=== PATIENT | female | born 1970 | race Caucasian/White ===

== ENCOUNTER → 2016-06-12 | Outpatient (REF) ==
[~2016-06-12] MED LIST: MIRENA52 MG IY; NORCO 325 MG-51 TAB PO; NORCO 325 MG-7.1 TAB PO; ROXICODONE 55 MG/TAB PO
== END ==
LOC: WSOH 09:24
DX: Z01.89 Encounter for other specified special examinations (principal)

== ENCOUNTER → 2016-11-13 | Outpatient (REF) | LOC: WSOH 16:15 | DX: Z02.89 Encounter for other administrative examinations (principal) ==

== ENCOUNTER 2017-04-23 07:39 | Outpatient (CLI) | payer BC ==
[~2017-04-23] VITALS: Ht 162.6 cm; Wt 70.0 kg
[2017-04-23 08:10] VITALS: BP 112/74; PULSE 73; TEMP 97.9
[2017-04-23 10:43] LABS: HEMOGLOBIN 12.9 g/dl (12.5-16.0); MEAN CELL VOLUME 97 fl (80.0-100.0); MEAN CORPUSCULAR HEMOGLOBIN 33 pg (27.0-31.0); MEAN CORPUSCULAR HGB CONC 34 g/dl (33.0-37.0); MEAN PLATELET VOLUME 10.9 fl (7.4-10.4); PLATELET COUNT 196 K/mm3 (130-400); RED BLOOD COUNT 3.93 M/mm3 (4.10-5.30); REDCELL DISTRIBUTION WIDTH-CV 12.5 % (11.5-14.5)
[2017-04-23 11:44] LABS: BAND 1 % (0-10); EOSINOPHIL 1 % (0-4); NEUTROPHILS 20 % (42.0-75.2); PLATELET ESTIMATE NORMAL (NORMAL)
[2017-04-23 11:49] LABS: LYMPHOCYTE 73 % (20.0-51.0)
[2017-04-23 13:33] VITALS: BP 105/67; PULSE 64
== END 2017-04-23 11:10 | disposition home or self-care (01) ==
LOC: SDCO 07:39
PROVIDERS: Pathology Anatomic Pathology & Clinical Pathology
DX: C83.00 Small cell B-cell lymphoma, unspecified site (principal); Z88.1 Allergy status to other antibiotic agents
CPT/HCPCS: J2405; J2704; J3010; J7120

== ENCOUNTER 2017-12-11 05:37 | Day surgery (SDC) | payer BC ==
[2017-12-11] VITALS (17 sets, daily range): BP systolic 94–110; BP diastolic 51–75; PULSE 57–89; TEMP 97.7–98.1
[~2017-12-11] VITALS: Ht 157.5 cm; Wt 66.8 kg
[2017-12-11 06:15] LABS: HEMATOCRIT 38.4 % (37.0-47.0); MEAN CELL VOLUME 93 fl (80.0-100.0); MEAN CORPUSCULAR HEMOGLOBIN 32 pg (27.0-31.0); MEAN CORPUSCULAR HGB CONC 34 g/dl (33.0-37.0); MEAN PLATELET VOLUME 11.4 fl (7.4-10.4); PLATELET COUNT 191 K/mm3 (130-400); RED BLOOD COUNT 4.11 M/mm3 (4.10-5.30)
[2017-12-11] MEDS ORDERED: MOTRIN 200200 MG/TAB PO (06:16)
[2017-12-11 06:20] LABS: INR 1.1 (0.8-3.0)
[2017-12-11 06:50] LABS: ALBUMIN 4.4 gm/dL (3.5-5.0); BILIRUBIN,TOTAL 0.6 mg/dL (0.0-1.0); CALCIUM 9.6 mg/dL (8.4-10.2); CREATININE, serum 0.7 mg/dL (0.52-1.25); POTASSIUM 4.2 mmol/L (3.4-5.0); TOTAL PROTEIN 7.7 gm/dL (6.4-8.2)
[2017-12-11 07:01] LABS: BAND 1 % (0-10); EOSINOPHIL 1 % (0-4); METAMYELOCYTE 1 % (0-0); NEUTROPHILS 13 % (42.0-75.2); PLATELET ESTIMATE NORMAL (NORMAL)
[2017-12-11 07:04] LABS: LYMPHOCYTE 83 % (20.0-51.0)
[2017-12-11] MEDS ORDERED: NORCO 325 MG-51 TAB PO (15:46)
== END 2017-12-11 16:40 | disposition home or self-care (01) ==
LOC: SDCO 05:37
PROVIDERS: Surgery
DX: K80.64 Calculus of gallbladder and bile duct with chronic cholecystitis without obstruction (principal); C85.10 Unspecified B-cell lymphoma, unspecified site; C91.10 Chronic lymphocytic leukemia of B-cell type not having achieved remission; Z85.830 Personal history of malignant neoplasm of bone
CPT/HCPCS: C1769; J0690; J1100; J1885; J2405; J2550; J2704; J2710; J3010; J7120; Q9967

== ENCOUNTER 2018-01-22 07:32 | Day surgery (SDC) | payer BC ==
[~2018-01-22] VITALS: Ht 157.5 cm; Wt 65.1 kg
[~2018-01-22 07:32] MED LIST changes: +MOTRIN 200200 MG/TAB PO
[2018-01-22 08:00] VITALS: BP 105/66; PULSE 79; TEMP 98.1
[2018-01-22 10:28] VITALS: BP 88/50; PULSE 64; TEMP 97.5
[2018-01-22 10:45] VITALS: BP 95/57; PULSE 62
[2018-01-22 11:00] VITALS: BP 90/65; PULSE 70
[2018-01-22 11:08] VITALS: BP 94/59; PULSE 62
== END 2018-01-22 11:40 | disposition home or self-care (01) ==
LOC: SDCO 07:32
DX: C91.10 Chronic lymphocytic leukemia of B-cell type not having achieved remission (principal); Z85.830 Personal history of malignant neoplasm of bone
CPT/HCPCS: C1788; J1644; J2704; J3010; J7120

== ENCOUNTER → 2018-05-23 | Outpatient (CLI) | payer BC | LOC: COL.RAD 05-20 10:00 | DX: C83.01 Small cell B-cell lymphoma, lymph nodes of head, face, and neck (principal); Z95.828 Presence of other vascular implants and grafts; Z90.49 Acquired absence of other specified parts of digestive tract | CPT/HCPCS: Q9967 ==

== ENCOUNTER → 2019-02-05 | Outpatient (CLI) | payer BC | LOC: MC.RAD 14:59 | DX: Z12.31 Encounter for screening mammogram for malignant neoplasm of breast (principal) ==

== ENCOUNTER → 2020-04-15 | Outpatient (CLI) | payer BC | LOC: MC.RAD 11:30 | DX: Z12.31 Encounter for screening mammogram for malignant neoplasm of breast (principal) ==

== ENCOUNTER 2020-12-22 09:15 | Day surgery (SDC) | payer BC ==
[~2020-12-22] VITALS: Ht 157.5 cm; Wt 59.5 kg
[2020-12-22 10:01] VITALS: BP 103/68; PULSE 73; TEMP 8.3
[2020-12-22] MEDS ORDERED: FLOVENT 44MCG I13 GM IH (10:57)
[2020-12-22] MEDS ORDERED: ALLEGRA ALLERGY60 MG PO (11:02)
[2020-12-22] MEDS ORDERED: TYLENOL 500MG500 MG PO (11:03)
[2020-12-22 11:45] VITALS: BP 95/64; PULSE 62; TEMP 97.2
--- NOTE | 2020-12-22 11:45 | NUR ---
PATIENT BROUGHT BACK TO ROOM 5 VIA CART. PATIENT HAS SEVERE MOTION SICKNESS AND FEELS SOME DIZZINESS AND NAUSEA. LEFT ON CART. PLACED ON MONITORS, VITAL SIGNS STABLE. XENIA AT BEDSIDE TO GIVE REPORT. ZOFRAN ADMINISTERED PER ORDERS. PATIENT REQUESTS SPRITE AND MUFFIN. TO BE DRIVEN HOME BY DORIS. CALL PEREZ WITHIN REACH. WILL CONTINUE TO MONITOR.
[2020-12-22 12:00] VITALS: BP 102/66; PULSE 62
--- NOTE | 2020-12-22 12:00 | NUR ---
PATIENT STATES SHE IS FEELING A BIT BETTER. TOLERATING FOOD AND DRINK WITHOUT DIFFICULTY. VITAL SIGNS STABLE. WILL CONTINUE TO MONITOR.
[2020-12-22 12:15] VITALS: BP 106/66; PULSE 58
[2020-12-22 12:30] VITALS: BP 109/64; PULSE 54
--- NOTE | 2020-12-22 12:30 | NUR ---
PATIENT STATES SHE FEELS READY TO GO HOME. VITAL SIGNS STABLE. TOLERATED SNACKS. NAUSEA HAS SUBSIDED. IV REMOVED, INTACT. PATIENT TO GET DRESSED AT THIS TIME.
--- NOTE | 2020-12-22 12:45 | NUR ---
PATIENT BROUGHT DOWN TO LOBBY VIA WHEEL CHAIR. DORIS AT FRONT DOOR TO DRIVE PATIENT HOME. ALL BELONGINGS IN HAND.
== END 2020-12-22 12:45 | disposition home or self-care (01) ==
LOC: SDCO 09:15
DX: Z12.11 Encounter for screening for malignant neoplasm of colon (principal); D12.3 Benign neoplasm of transverse colon; K57.30 Diverticulosis of large intestine without perforation or abscess without bleeding; J45.909 Unspecified asthma, uncomplicated; Z85.6 Personal history of leukemia; Z20.822 Contact with and (suspected) exposure to COVID-19; Z79.899 Other long term (current) drug therapy; Z92.21 Personal history of antineoplastic chemotherapy
CPT/HCPCS: J2405; J2704; J7030

== ENCOUNTER → 2022-01-19 | Outpatient (CLI) | payer BC ==
[~2022-01-19] MED LIST changes: +ALLEGRA ALLERGY60 MG PO; +FLOVENT 44MCG I13 GM IH; +TYLENOL 500MG500 MG PO
== END ==
LOC: MC.RAD 12-08 08:30
DX: Z12.31 Encounter for screening mammogram for malignant neoplasm of breast (principal)